=== PATIENT | male | born 1960 | race African-American/Black ===

== ENCOUNTER 2019-07-02 08:16 | Emergency (ER) | payer SELFPAY ==
--- NOTE | 2019-07-02 08:39 | RAD ---
RIGHT WRIST 3 VIEWS: HISTORY: Injury. Right wrist pain. FINDINGS/IMPRESSION: There is an old fracture of the ulnar styloid. No acute fracture or dislocation is identified. If symptoms do not improve, a followup exam should be obtained in 7-10 days. POS: OFF
--- NOTE | 2019-07-02 08:54 | RAD ---
Exam:3 views right hand HISTORY: Pain. Swelling COMPARISON: None FINDINGS: Chronic changes level of the ulnar styloid. Joint spaces are preserved. No fracture, cortic al irregularity or periosteal reaction. There is soft tissue swelling IMPRESSION: Soft tissue swelling. No acute abnormality.
[2019-07-02] MEDS ORDERED: Ketorolac Tromethamine 30 MG/ML VIAL ONE (09:03)
== END 2019-07-02 09:28 | disposition home or self-care (01) ==
LOC: ERS 08:16
DX: S63.501A Unspecified sprain of right wrist, initial encounter (principal); F17.210 Nicotine dependence, cigarettes, uncomplicated; X50.1XXA Overexertion from prolonged static or awkward postures, initial encounter
CPT/HCPCS: 29125; 96372; J1885